=== PATIENT | male | born 1990 | race Caucasian/White ===

== ENCOUNTER 2023-07-09 07:26 | Emergency (ER) | payer SELFPAY ==
[2023-07-09 07:36] VITALS: BP 111/68; PULSE 90; RESP 18; TEMP 100.2; BMI 31.3
[2023-07-09] MEDS ORDERED: IBUPROFEN 400 MG TABLET (FP) PO ONE (07:59)
[2023-07-09] MEDS ORDERED: ACETAMINOPHEN 500 MG TABLET (FP) ONE (08:00)
[2023-07-09] MEDS: IBUPROFEN 400 MG TABLET (FP) PO ONE (08:02)
[2023-07-09] MEDS: ACETAMINOPHEN 500 MG TABLET (FP) PO ONE (08:07)
== END 2023-07-09 09:33 | disposition home or self-care (01) ==
LOC: JERFT 07:26
DX: J02.9 Acute pharyngitis, unspecified (principal); M79.10 Myalgia, unspecified site; R11.0 Nausea; R50.9 Fever, unspecified; Z20.822 Contact with and (suspected) exposure to COVID-19
CPT/HCPCS: 0241U-QW; 87070; 87651; 99283-25